=== PATIENT | male | born 1955 | race African-American/Black ===

== ENCOUNTER 2020-06-10 23:57 | Observation (INO) ==
[2020-06-11] MEDS ORDERED: SODIUM CHLORIDE 0.9% 1,000 ML IV STA (00:56)
[2020-06-11 01:06] LABS: Basophils # 0.1 10*3/uL (0.0-0.2); Basophils % 0.4 % (0.0-0.8); Eosinophils # 0.1 10*3/uL (0.0-0.87); Eosinophils % 0.7 % (0.00-10.9); Hematocrit 41.7 VOL% (42.0-52.0); Hemoglobin 14.3 GM/DL (14.0-18.0); Immature Granulocytes % 0.4 %; Immature Granulocytes Absolute 0.04 #; Lymphocytes # 1.6 10*3/uL (1.4-4.0); Lymphocytes % 14.3 % (21.2-54.2); Mean Corpuscular HGB Conc 34.3 GM/DL (32-36); Mean Corpuscular Volume 93.1 FL (87-102); Mean Platelet Volume 9.9 FL (9.6-12.0); Monocytes % 6.6 % (1.7-12.7); Neutrophils % 77.6 % (38.7-73.9); Platelet Count 274 T/CUMM (130-400); Red Blood Count 4.48 MC/CUMM (3.8-5.5); Red Cell Distribution Width 12.2 % (9.3-17.3); White Blood Count 11.3 T/CUMM (4-12)
[2020-06-11 01:13] LABS: PT Patient Result 11.1 SECS (9.8-11.9)
[2020-06-11 01:18] LABS: Alanine Aminotransferase 30 U/L (16-61); Albumin 4.2 G/DL (3.4-5.0); Alkaline Phosphatase 77 U/L (45-117); Aspartate Amino Transferase 30 U/L (0-37); Blood Urea Nitrogen 11 MG/DL (7-18); Calcium 9.3 MG/DL (8.5-10.1); Estimated Glom Filtration Rate 93 ML/MIN; Glucose 112 MG/DL (74-106); Osmolality,Calculated 272.8 MOS/KG (273-304); Total Protein 7.9 G/DL (6.4-8.3); Troponin I < 0.015 NG/ML (0.00-0.045)
[2020-06-11] MEDS ORDERED: DEXTROSE 50% 25 GM/50 ML VIAL IV PRN (01:51)
[2020-06-11] MEDS ORDERED: ACETAMINOPHEN 325 MG TABLET PO PRN (01:51)
[2020-06-11] MEDS ORDERED: GLUCAGON 1 MG VIAL IM PRN (01:51)
[2020-06-11] MEDS ORDERED: ONDANSETRON 4 MG/2 ML VIAL IV PRN (01:51)
[2020-06-11] MEDS ORDERED: POTASSIUM CHLORIDE 20 MEQ TABLET PO STA (01:59)
[2020-06-11 02:06] LABS: Apearance,Urine CLEAR (Clear); Bilirubin,Urine Negative (Negative); Blood, Urine Negative (Negative); Glucose,Urine (UA) Negative (Negative); Hyaline Casts,Urine 1 /LPF (0-3); Ketones,Urine Negative (Negative); Nitrite,Urine Negative (Negative); Protein,Urine Negative; Urine Color Yellow (Yellow); Urine Urobilinogen < 2.0 EU/DL (0.2-1.0); WBC,Urine 1 /HPF (0-6)
[2020-06-11 02:12] LABS: Barbiturates Screen,Urine Negative (Negative); Benzodiazepines Screen,Urine Negative (Negative); Cannabinoid Screen,Urine Positive (Negative); Opiate Screen,Urine Negative (Negative); Phencyclidine Screen,Urine Negative (Negative)
[2020-06-11 02:58] LABS: Troponin I < 0.015 NG/ML (0.00-0.045)
[2020-06-11] MEDS: SODIUM CHLORIDE 0.9% 1,000 ML IV SCH ×2 (05:45→16:45)
[2020-06-11 07:30] LABS: Basophils # 0.1 10*3/uL (0.0-0.2); Basophils % 0.6 % (0.0-0.8); Eosinophils # 0.1 10*3/uL (0.0-0.87); Hematocrit 37.3 VOL% (42.0-52.0); Hemoglobin 12.7 GM/DL (14.0-18.0); Immature Granulocytes % 0.2 %; Immature Granulocytes Absolute 0.02 #; Lymphocytes # 2.3 10*3/uL (1.4-4.0); Lymphocytes % 25.8 % (21.2-54.2); Mean Corpuscular Volume 93.7 FL (87-102); Mean Platelet Volume 9.5 FL (9.6-12.0); Monocytes % 9.3 % (1.7-12.7); Neutrophils % 63.1 % (38.7-73.9); Platelet Count 223 T/CUMM (130-400); Red Blood Count 3.98 MC/CUMM (3.8-5.5); Red Cell Distribution Width 12.3 % (9.3-17.3); White Blood Count 8.7 T/CUMM (4-12)
[2020-06-11 08:02] LABS: Alanine Aminotransferase 27 U/L (16-61); Albumin 3.5 G/DL (3.4-5.0); Alkaline Phosphatase 66 U/L (45-117); Aspartate Amino Transferase 25 U/L (0-37); Blood Urea Nitrogen 9 MG/DL (7-18); Calcium 8.8 MG/DL (8.5-10.1); Estimated Glom Filtration Rate 120 ML/MIN; Glucose 85 MG/DL (74-106); Osmolality,Calculated 276.4 MOS/KG (273-304); Total Protein 6.7 G/DL (6.4-8.3); Troponin I < 0.015 NG/ML (0.00-0.045)
[2020-06-11] MEDS: PANTOPRAZOLE 40 MG TABLET PO SCH (09:30)
[2020-06-11] MEDS: POTASSIUM CHLORIDE 20 MEQ TABLET PO PRN ×4 (10:30→17:22)
[2020-06-11] MEDS: carvediloL 25 MG TABLET PO SCH (17:22)
[2020-06-11] MEDS ORDERED: ZALEPLON 5 MG CAPSULE PO PRN (23:45)
[2020-06-12 05:47] LABS: Basophils # 0.1 10*3/uL (0.0-0.2); Basophils % 0.8 % (0.0-0.8); Eosinophils # 0.1 10*3/uL (0.0-0.87); Eosinophils % 2.1 % (0.00-10.9); Hematocrit 37.4 VOL% (42.0-52.0); Hemoglobin 12.6 GM/DL (14.0-18.0); Immature Granulocytes % 0.2 %; Immature Granulocytes Absolute 0.01 #; Lymphocytes # 2.2 10*3/uL (1.4-4.0); Mean Corpuscular HGB Conc 33.7 GM/DL (32-36); Mean Corpuscular Volume 94.4 FL (87-102); Mean Platelet Volume 9.9 FL (9.6-12.0); Monocytes % 9.4 % (1.7-12.7); Neutrophils % 54.5 % (38.7-73.9); Platelet Count 204 T/CUMM (130-400); Red Blood Count 3.96 MC/CUMM (3.8-5.5); Red Cell Distribution Width 12.2 % (9.3-17.3); White Blood Count 6.6 T/CUMM (4-12)
[2020-06-12 06:06] LABS: Calcium 8.3 MG/DL (8.5-10.1)
[2020-06-12] MEDS: POTASSIUM CHLORIDE 20 MEQ TABLET PO PRN ×2 (08:57→10:51)
[2020-06-12] MEDS: carvediloL 25 MG TABLET PO SCH (08:58)
[2020-06-12] MEDS: PANTOPRAZOLE 40 MG TABLET PO SCH (08:58)
[2020-06-12 12:00] VITALS: BP 148/88
[2020-06-12] MEDS: SODIUM CHLORIDE 0.9% 1,000 ML IV SCH (13:43)
== END 2020-06-12 13:41 | disposition home or self-care (01) ==
LOC: N.ED 23:57 → N.EDINP 23:57 → N.3E 06-11 02:58
PROVIDERS: ADMIT Internal Medicine; ATTEND Internal Medicine